=== PATIENT | male | born 1990 | race Caucasian/White ===

== ENCOUNTER 2020-11-22 06:37 | Emergency (ER) | payer OTHER, SELFPAY ==
[2020-11-22] VITALS (14 sets, daily range): BP systolic 94–129; BP diastolic 52–77; PULSE 72–97; RESP 16–24; TEMP 36.6; O2SAT 96–99
--- NOTE | ~2020-11-22 | CT_ITS ---
EXAMINATION: CT BRAIN W/O DATE: 11/22/2020 08:11 INDICATION: Head injury. Headache. Transient alteration of awareness. TECHNIQUE: Computed tomography (CT) of the head was performed without intravenous contrast. The dose- length product was 605.33 mGy-cm. Automated exposure control and iterative reconstruction technique w ere employed. COMPARISON: No prior studies for comparison. FINDINGS: Normal brain parenchymal volume for age. Normal angulo-white differentiation. No acute intrac ranial hemorrhage, infarction, mass or mass effect. There is left posterior parietal scalp hematoma. No ventriculomegaly or midline shift. Midline sagittal images demonstrate a normal corpus callosum, c raniovertebral junction and sella turcica. Basilar cisterns are patent. Paranasal sinuses and mastoids are pneumatized. No depressed skull fractures. IMPRESSION: 1. No acute intracranial abnormality. Reviewed, dictated and finalized at location A.
--- NOTE | 2020-11-22 08:03 | PC.NURSE ---
Patient to radiology.
[2020-11-22] MEDS: ONDANSETRON INJ 4 MG/2 ML VIAL IV PUSH (08:48)
[2020-11-22] MEDS: LACTATED RINGERS 1,000 ML 999 ML IV CONT (09:07)
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
== END 2020-11-22 11:37 | disposition home or self-care (01) ==
PROVIDERS: Emergency Provider General Practice
DX: S00.03XA Contusion of scalp, initial encounter (principal); F17.210 Nicotine dependence, cigarettes, uncomplicated; Y04.0XXA Assault by unarmed brawl or fight, initial encounter
CPT/HCPCS: 70450; 96361; 96374; 96375; 99284; J0131; J2405; J7120

== ENCOUNTER 2023-04-15 14:26 | Emergency (ER) | payer OTHER, SELFPAY ==
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
[2023-04-15 14:35] VITALS: BP 142/91; PULSE 96; RESP 18; TEMP 36.7; O2SAT 100
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
== END 2023-04-15 17:35 | disposition home or self-care (01) ==
PROVIDERS: Emergency Provider Emergency Medicine
DX: S01.21XA Laceration without foreign body of nose, initial encounter (principal); F17.210 Nicotine dependence, cigarettes, uncomplicated; Y04.0XXA Assault by unarmed brawl or fight, initial encounter
CPT/HCPCS: 70486; 72125; 99284

== ENCOUNTER 2024-02-08 13:33 | Emergency (ER) | payer OTHER, SELFPAY ==
--- NOTE | ~2024-02-08 | XR_ITS ---
EXAMINATION: XR knee RT min 4V DATE: 02/08/2024 15:00 INDICATION: Right knee pain. TECHNIQUE: 4 views of right knee were obtained. COMPARISON: None. FINDINGS: Alignment is normal. No fracture. Joint spaces are normal. No knee joint effusion. IMPRESSION: 1. Normal right knee. Reviewed, dictated and finalized at location A. IMPRESSION: 1. Normal right knee.
--- NOTE | ~2024-02-08 | XR_ITS ---
EXAMINATION: XR lumbar spine 2-3V DATE: 02/08/2024 15:00 INDICATION: Low back pain. TECHNIQUE: 3 views of lumbar spine were obtained. COMPARISON: None. FINDINGS: There is 5 degrees dextrocurvature of lumbar spine. There is mild chronic anterior wedging of T12 vertebral body. Intervertebral disc heights are normal. There are endplate osteophytes at mult iple levels. There is multilevel mild facet joint osteoarthritis. IMPRESSION: 1. Mild lumbar spondylosis. Reviewed, dictated and finalized at location A. IMPRESSION: 1. Mild lumbar spondylosis.
--- NOTE | ~2024-02-08 | XR_ITS ---
EXAMINATION: XR shoulder LT min 2V DATE: 02/08/2024 15:00 INDICATION: Left shoulder pain. TECHNIQUE: 4 views of left shoulder were obtained. COMPARISON: None. FINDINGS: Bone alignment is normal. No fracture. Joint spaces are normal. IMPRESSION: 1. Normal left shoulder. Reviewed, dictated and finalized at location A. IMPRESSION: 1. Normal left shoulder.
[2024-02-08 13:39] VITALS: BP 145/88; PULSE 108; RESP 16; TEMP 36.3; O2SAT 97
[2024-02-08 13:50] LABS: Basophils Percent Auto 0.4 % (0.2-1.2); Eosinophils Absolute Auto 0.2 K/mm3 (0-0.3); Eosinophils Percent Auto 1.7 % (0-4.4); Immature Granulocyte Absolute 0.03 K/mm3 (0.00-0.031); Immature Granulocyte Percent A 0.3 % (0-0.5); Lymphocytes Absolute Auto 2.72 K/mm3 (0.9-3.2); Lymphocytes Percent Auto 30.2 % (18.3-44.2); Mean Corpuscular HGB Conc 35.7 g/dl (32-36); Mean Corpuscular Hemoglobin 31.7 pg (26-34); Mean Corpuscular Volume 88.8 fl (80-100); Mean Platelet Volume 9.4 fl (7.4-10.4); Monocytes Absolute Auto 0.5 K/mm3 (0.1-0.6); Monocytes Percent Auto 5.2 % (2.6-8.5); Neutrophils Absolute Auto 5.6 K/mm3 (1.3-6.7); Neutrophils Percent Auto 62.2 % (45.5-73.1); Platelet Count Result 229 k/mm3 (150-375); Red Blood Count 4.73 M/mm3 (4.6-6.20); Red Cell Distribution Width 12.7 % (11.5-14.5)
[2024-02-08 14:06] LABS: Alanine Aminotransferase 28 U/L (6-50); Albumin Level 4.8 g/dL (3.5-5.1); Alkaline Phosphatase 121 U/L (38-126); Anion Gap 16 mmol/L (4-12); Aspartate Amino Transferase 37 U/L (17-59); Bilirubin,Total 0.3 mg/dL (0.2-1.3); Blood Urea Nitrogen 8 mg/dL (9-20); Calcium 8.9 mg/dL (8.4-10.2); Carbon Dioxide 22 mmol/L (22-30); Chloride 108 mmol/L (98-107); Estimated CRCL calculation 74 ml/min; Estimated Glomerular Filt Rate > 60; Glucose 111 mg/dL (65-110); Potassium 3.7 mmol/L (3.4-5.0); Sodium 146 mmol/L (137-145)
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
[2024-02-08 14:26] LABS: Creatine Kinase 180 U/L (55-170)
[2024-02-08] MEDS: LACTATED RINGERS 1,000 ML 999 ML IV CONT (14:35)
[2024-02-08 15:41] LABS: Ethanol 269 mg/dL (<10)
[2024-02-08 15:50] VITALS: BP 134/76; PULSE 82; RESP 20; TEMP 36.6; O2SAT 100
== END 2024-02-08 15:56 ==
PROVIDERS: Emergency Medicine; Emergency Provider Physician Assistant
DX: S40.012A Contusion of left shoulder, initial encounter (principal); E86.0 Dehydration; F17.210 Nicotine dependence, cigarettes, uncomplicated; M47.816 Spondylosis without myelopathy or radiculopathy, lumbar region; Y35.813A Legal intervention involving manhandling, suspect injured, initial encounter
CPT/HCPCS: 36415; 72100; 73030; 73564; 80053; 80307; 82550; 85025; 96360; 99284; J7120

== ENCOUNTER 2024-04-17 05:09 | Emergency (ER) | payer OTHER, SELFPAY ==
--- NOTE | ~2024-04-17 | XR_ITS ---
Portable chest x-ray Comparison: None Clinical History: Cough, shortness of breath Findings: Lungs are clear, without focal consolidation or pleural effusion. Cardiomediastinal silho uette is stable. Bones and soft tissues are unremarkable. Impression: Normal chest. Reviewed, dictated and finalized at [facility]. [employer] Impression: Normal chest.
--- NOTE | 2024-04-17 05:41 | ED.GENADULT ---
HPI - General Adult General Chief complaint: Shortness of Breath/Dyspnea Stated complaint: Cough; everytime I throw up; chills Time Seen by Provider: 04/17/24 05:14 History of Present Illness HPI narrative: Patient is a 34-year-old male who presents to the emergency department this evening complaining of a cough and URI symptoms for the past 2 days. Patient states that he is coughing so hard that it is causing him to vomit. Admits that he has been around sick contacts, some kids and believes that he picked a point of chills at home states that he has not taken any [id number] medications any cough suppressants. Denies any chest pain. No additional symptoms or concerns at this time. Related Data Allergies Allergy/AdvReac Type Severity Reaction Status Date / Time No Known Allergies Allergy Verified 02/08/24 13:36 Review of Systems Review of Systems: All systems are reviewed and are negative unless stated otherwise in the HPI. [facility] Past Medical History Medical History Patient denies medical problems Surgical History Surgical History No pertinent past surgical history Social History Social History Smoking packs per day: 1 Smoking cigarettes per day: 20.0 Smoking status: Current every day smoker Alcohol intake: current Gender identity (if verbalized by the patient): Male Exam Narrative: General: Alert, awake, afebrile, dry cough, in no acute distress. HEENT: PERRL, no rhinorrhea, no post nasal drip, oropharynx clear. Neck: Trachea midline, no JVD, no lymphadenopathy. Cardiovascular: Regular rate and rhythm, no murmurs, rubs or gallops, no peripheral edema. Respiratory: Clear to auscultation bilaterally, no tachypnea, no wheezing, no rhonchi, no rubs, no respiratory distress. Abdomen: Soft, nontender, nondistended, no rebound, no guarding, no peritoneal signs. Musculoskeletal: No joint swelling or deformity, normal muscle tone. Skin: No rashes or petechia, no signs of infection. Psychiatric: Alert and oriented, normal behavior and judgment for situation. Neurological: Alert and oriented to person, place, and time. Follows all commands. No focal deficits, speech is clear and fluent. Course Vital Signs Vital signs: Vital Signs Oxygen Delivery Room Air 04/17/24 05:38 Temperature 98.1 F 04/17/24 06:41 Pulse Rate 85 04/17/24 06:41 Respiratory Rate 18 04/17/24 06:41 Blood Pressure 139/83 04/17/24 06:41 Pulse Oximetry 100 04/17/24 06:41 Oxygen Delivery Room Air 04/17/24 05:38 Medical Decision Making MDM Narrative Medical decision making narrative: The patient was evaluated by myself in the emergency department. History is obtained from patient who is an independent historian and physical exam was performed. External medical records were reviewed at this time. Patient was administered 200 mg of benzonatate. Viral swabs were obtained and noted to be negative for influenza and COVID. Imaging studies obtained included CXR which was independently interpreted by me revealing no acute process, which is pending final radiology interpretation. Differential diagnosis considerations include acute viral syndrome, infectious process such as pneumonia. Comorbidities impacting this visit include none. I have evaluated and discussed social determinants of health with the patient that could potentially impact subsequent diagnosis and treatment plans. On repeat assessment of the patient, reevaluation revealed that the patient is doing well and is in no acute distress. Patient symptoms have remained stable since he arrived to our emergency department. Repeat vital signs were all reviewed and noted to be stable. Differential diagnosis and treatment plan were discussed with the patient at bedside. Patient agrees with discussion and after shared medical decision making agrees with discharge. All questions were answered to the patient's satisfaction. Patient will follow up with his PCP in 3-5 days. A script for Tesbevon Perles was sent to patient's pharmacy to use as prescribed. Patient was provided with strict return precautions and instructed to return to the emergency department if any new or worsening symptoms develop. The patient was discharged in stable condition. Vital Signs Vital Signs: Vital Signs Oxygen Delivery Room Air 04/17/24 05:38 Temperature 98.1 F 04/17/24 06:41 Pulse Rate 85 04/17/24 06:41 Respiratory Rate 18 04/17/24 06:41 Blood Pressure 139/83 04/17/24 06:41 Pulse Oximetry 100 04/17/24 06:41 Oxygen Delivery Room Air 04/17/24 05:38 Lab Data Labs: Lab Results 04/17/24 Range/Units 05:21 Influenza A (RT-PCR) Negative (Negative) Influenza B (RT-PCR) Negative (Negative) SARS-CoV-2 RNA (RT-PCR) Negative (Negative) Discharge Plan Discharge Clinical Impression: Acute viral syndrome Patient Disposition: Home, Self-Care Condition: Stable Instructions: Antibiotic Form, Upper Respiratory Infection (ED) Additional Instructions: Please follow-up your family doctor within the next 3 to 5 days. Return to the emergency department if any new or worsening symptoms develop. Use the prescribed Tessalon Perles as needed for cough. You also recommended to take [id number] cough suppressants as this will help with your symptoms. Prescriptions: New benzonatate 200 mg capsule 200 mg PO TID PRN (Reason: cough) Qty: 14 0RF No Action ondansetron HCl [Zofran] 4 mg tablet 4 mg PO Q6H PRN (Reason: nausea and vomiting) Qty: 10 0RF cephalexin 500 mg capsule 500 mg PO Q6H 7 Days Qty: 28 0RF Follow-up/Referrals: Cyrus Wallace DO [Physician] - 3 Days UNKNOWN,DOCTOR [Primary Care Provider] - Time of Disposition: 05:40
[2024-04-17] MEDS: BENZONATATE 100 MG CAPSULE 200 MG PO (05:50)
[2024-04-17 05:59] VITALS: O2SAT 95
[2024-04-17 06:02] LABS: Influenza A QL RT-PCR Negative (Negative); Influenza B QL RT-PCR Negative (Negative); SARS-CoV-2 RNA PCR Negative (Negative)
[2024-04-17 06:41] VITALS: BP 139/83; PULSE 85; RESP 18; TEMP 36.7; O2SAT 100
== END 2024-04-17 06:48 | disposition home or self-care (01) ==
LOC: ANHED 06:14
PROVIDERS: Emergency Provider Emergency Medicine
DX: B34.9 Viral infection, unspecified (principal); Z20.822 Contact with and (suspected) exposure to COVID-19
CPT/HCPCS: 71045; 87636; 99283; A9270

== ENCOUNTER 2024-07-24 22:09 | Emergency (ER) | payer OTHER, SELFPAY ==
[2024-07-24 22:10] VITALS: BP 132/90; PULSE 62; RESP 18; TEMP 36.8; O2SAT 99
--- OUTSIDE RECORDS SUMMARY | 2024-07-24 22:12 | XMS_ITS | Patient Health Summary ---
Author Organization [facility] Address [address] [place] [address] Care Team Providers Care Global Account Executive Name Role Phone Kayleigh Smith MD Unavailable Note from [facility],non-owned Affiliates and Associated Physician Practices is amultiple site organization consisting of ambulatory clinics and hospital sitesin [place], [place], [place] and [place]. This disclosure is being madepursuant to the Care Everywhere program and may not contain all information available regarding this patient. Last updated 18.[facility] [employer] Allergies No known active allergies Medications * Be aware that medications may not be up to date on this document. Alwaysverify current medications with the patient. * loratadine (CLARITIN) 10 MG tablet Take 10 mg by mouth daily. Immunizations * DTaP VACCINE IM (6wk-6yrs)(Given 11/08/1996, 08/01/1992, 02/01/1992, 1991, 1991) * HEP A PEDS 2 DOSE(Given 07/28/2008, 09/05/2005) * HEP B VACCINE, PED/ADOL(Given 02/11/2004, 12/14/2001, 11/12/2001) * HIB BOOSTER(Given 08/01/1992, 02/01/1992, 1991, 1991) * MMR(Given 11/08/1996, 08/01/1992) * POLIO IPV(Given 11/08/1996, 08/01/1992, 1991, 1991) * PPD(Given 09/05/2005, 11/12/2001) * TDAP (7yrs+)(Given 09/05/2005) Social History Tobacco Use Types Packs/Day Years Used Date Smoking Tobacco: Never Assessed Sex and Gender Information Value Date Recorded Sex Assigned at Not on file Gender Identity Not on file Sexual Orientation Not on file Last Filed Vital Signs Vital Sign Reading Time Taken Comments Blood Pressure 129/73 07/24/2009 2:20 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
--- OUTSIDE RECORDS SUMMARY | 2024-07-24 22:12 | XMS_ITS | Referral Summary ---
Author Organization [facility] Address [address] [place] [address] Care Team Providers Care Media Executive Name Role Phone Kayleigh Smith MD Unavailable Source Comments [facility] [employer],non-owned Affiliates and Associated Physician Practices is amultiple site organization consisting of ambulatory clinics and hospital sitesin [place], [place], [place]. This disclosure is being madepursuant to the Care Everywhere program and may not contain all information available regarding this patient. Last updated 18.[employer] [facility] Allergies No known active allergies Medications * Be aware that medications may not be up to date on this document. Alwaysverify current medications with the patient. Medication Sig Dispensed Refills Start Date End Date Status loratadine (CLARITIN) 10 MG tablet Take 10 mg by mouth daily. Active Immunizations Name Administration Dates Next Due DTaP VACCINE IM (6wk-6yrs) 11/08/1996,,02/01/1992,1991,07/02 HEP A PEDS 2 DOSE 07/28/2008,09/05/2005 HEP B VACCINE, PED/ADOL 02/11/2004,12/14/2001, HIB BOOSTER 08/01/1992,02/01/1992,1991 ,1991 MMR 11/08/1996,08/01/1992 POLIO IPV 11/08/1996,08/01/1992,1991 ,1991 PPD 09/05/2005,11/12/2001 TDAP (7yrs+) 09/05/2005 Social History Tobacco Use Types Packs/Day Years Used Date Smoking Tobacco: Never Assessed Sex and Gender Information Value Date Recorded Sex Assigned at Not on file Gender Identity Not on file Sexual Orientation Not on file Last Filed Vital Signs Vital Sign Reading Time Taken Comments Blood Pressure 129/73 07/24/2009 2:20 PM BOTTLE HOUSE PUMPER Pulse 100 07/24/2009 2:20 PM BOTTLE HOUSE PUMPER Temperature 36.2 C (97.2 F) 05/26/2010 9:51 AM BOTTLE HOUSE PUMPER Respiratory Rate - - Oxygen Saturation - - Inhaled Oxygen Concentration - - Weight 70.1 kg (154 lb 9.6 oz) 05/26/2010 9:51 A M BOTTLE HOUSE PUMPER Height 171.5 cm (5' 7.5 ) 07/24/2009 2:20 PM BOTTLE HOUSE PUMPER Body Mass Index 23.86 07/24/2009 2:20 PM BOTTLE HOUSE PUMPER Plan of Treatment Not on file Care Teams Media Executive Relationship Specialty Start Date End Date Kayleigh Smith MD PCP - Pediatrics 04/10/09
--- OUTSIDE RECORDS SUMMARY | 2024-07-24 22:12 | XMS_ITS | Patient Health Record ---
Author Organization [facility] Address [address] [place] [address] Care Team Providers Care Communication Technician Name Role Phone Uzma Houston Primary Care Provider Allergies No Known Allergies Reason For Referral No Information Medications Medication SIG (Take, Route, Frequency, Duration) Notes Start Date End Date Status Vivitrol 380 MG as directed Intramus cular 1 every month for 30 days Active traZODone HCl 50 MG 1 tablet at bedtime as needed Orally Once a day for 30 day(s) Active PROzac 20 MG 1 capsule Orally Onc e a day for 30 day(s) Active BuSpar 15 MG 1 tablet Orally Twic e a day for 30 days Active Naltrexone HCl 50 MG 1 tablet Orally Onc e a day for 30 days Active Remeron 15 MG 1 tablet at bedtime Orally Once a day Not-Taking Social History Sex Assigned At : Social History Observation Description Sex Assigned At Male Problems Problem Type SNOMED Code ICD Code Onset Dates Problem Status W/U Status Risk Notes Problem Generalized anxiety disorder (47862376) Generalized anxiety disorder (F41.1) Active confirmed Problem Major depressive disorder (374759895) Major depressive disorder (F32.9) Active confirmed Problem Disorder caused by alcohol (disorder) (310538183) Alcohol use disorder (F10.99) Active confirmed Plan Of Treatment No Information Insurance Providers Payer Name Payer Address Payer Phone Subscriber Number Group Number Insured Name Patient Relationship to Insured Coverage Start Date Coverage End Date [facility] Claims Department [address] [place] [address] [phone] [id number] Dominguez Villasenor Self - patient is the insured [address] [facility] Attn Claims Department [address] [place] [address] [id number] Dominguez Villasenor Self - patient is the insured 2 Medications Administered Medication Instructions Date of Administration Dosage Notes Vivitrol 09/21/2021 380 mg Pt neptali well. Medical (General) History Medical History History ICD Code ORIF right tibia Surgical History Surgery Date(Month/Year)
--- OUTSIDE RECORDS SUMMARY | 2024-07-24 22:12 | XMS_ITS | Clinical Summary ---
Author Organization [facility] Address [address] [place] [address] Care Team Providers Care Silk Presser Name Role Phone Kayleigh Smith MD Unavailable Source Comments [employer],non-owned Affiliates and Associated Physician Practices is amultiple site organization consisting of ambulatory clinics and hospital sitesin [place], [place], [place] and [place]. This disclosure is being madepursuant to the Care Everywhere program and may not contain all information available regarding this patient. Last updated 18.[employer] Allergies No known active allergies Medications * [...] Comments Blood Pressure 129/73 07/24/2009 2:20 PM BUTT TRIMMER Pulse 100 07/24/2009 2:20 PM BUTT TRIMMER Temperature 36.2 C (97.2 F) 05/26/2010 9:51 AM BUTT TRIMMER Respiratory Rate - - Oxygen Saturation - - Inhaled Oxygen Concentration - - Weight 70.1 kg (154 lb 9.6 oz) 05/26/2010 9:51 A M BUTT TRIMMER Height 171.5 cm (5' 7.5 ) 07/24/2009 2:20 PM BUTT TRIMMER Body Mass Index 23.86 07/24/2009 2:20 PM BUTT TRIMMER Plan of Treatment Health Maintenance Due Date Last Done Comments HIV SCREENING 2006 HEPATITIS C SCREENING 04/06/2009 DTAP/TDAP/TD VACCINES (7 - Td or Tdap) 09/06/2015 09/05/2005, 11/08/1996, 08/01/1992, Additional history exists COVID-19 VACCINE ( season) 2024 INFLUENZA VACCINE (#1) 2024 DEPRESSION SCREENING 05/29/2024 ZOSTER VACCINE (1 of 2) 2041 HIB VACCINE Completed 08/01/1992, 09/1991, 1991, Additional history exists HEPATITIS B VACCINE Completed 02/11/2004, 12/14/2001, 11/12/2001 HPV VACCINE Aged Out No longer eligi ble based on patient's age to complete this topic MENINGOCOCCAL (Group B) VACCINE Aged Out No longer eligible based on patient's age to complete this topic MENINGOCOCCAL VACCINE Aged Out No dino alva eligible based on patient's age to complete this topic PNEUMOCOCCAL VACCINE Aged Out No long er eligible based on patient's age to complete this topic Care Teams Silk Presser Relationship Specialty Start Date End Date Kayleigh Smith MD PCP - Pediatrics 04/10/09
--- NOTE | 2024-07-25 00:02 | ED_ITS ---
HPI - Fall General Chief Complaint: Fall Stated Complaint: fall, facial trauma Time Seen by Provider: 07/24/24 23:45 History of Present Illness HPI Narrative: 34-year-old male presenting to the emergency department for evaluation after physical injury during a arrest with police custody. Patient fell to the ground and hit his face and nose on concrete and suffered some bleeding out of his right nostril is some minor abrasion to his nose. Did not lose consciousness but patient does admit to drinking throughout the evening. Does appear mildly intoxicated here but able to ambulate, not any acute distress. Denies any vision changes, headache, nauseousness. Endorses the bleeding has since stopped, has previous injuries to his nasal bones with multiple fractures before and a laceration to the tip of his nose that required repair. His tetanus is up-to-date according to him. Denies any other injuries today. Was otherwise in his normal state of health. Police officers have left and he is no longer in custody during arrival here to the ED. Related Data Allergies Allergy/AdvReac Type Severity Reaction Status Date / Time No Known Allergies Allergy Verified 02/08/24 13:36 Review of Systems Review of Systems: As reviewed above in HPI [facility] Past Medical History Medical History Patient denies medical problems Surgical History Surgical History No pertinent past surgical history Social History Social History Smoking packs per day: 1 Smoking cigarettes per day: 20.0 Smoking status: Current every day smoker Alcohol intake: current Gender identity (if verbalized by the patient): Male Exam Narrative: GENERAL: [Well-appearing, well-nourished, and in no acute distress.] HEAD: Normocephalic, left periorbital ecchymosis with some swelling to the supraorbital region to the left face EYES: [PERRLA and EOMI.] ENT: Swelling and tenderness to the nasal bridge, no obvious step-offs or deformity. No bleeding foci in the nares bilaterally. Posterior oropharynx any bleeding or ecchymoses. NECK: Supple. CHEST: [Clear to auscultation. No respiratory distress.] HEART: [Regular rate and rhythm]. No murmur heard. [Normal peripheral pulses.] ABDOMEN: [Soft, nondistended], [nontender], [No rigidity or guarding] EXTREMITIES: Normal range of motion. [No edema.] SKIN: Warm, dry, no rash. NEURO: [No focal deficits]. Alert and oriented [x3.] PSYCH: [Normal mood and affect.] Course Vital Signs Vital signs: Vital Signs Temperature 36.8 C 07/24/24 22:10 Pulse Rate 62 07/24/24 22:10 Respiratory Rate 18 07/24/24 22:10 Blood Pressure 132/90 07/24/24 22:10 Pulse Oximetry 99 07/24/24 22:10 Oxygen Delivery Room Air 07/24/24 22:10 Temperature 36.8 C 07/24/24 22:10 Pulse Rate 62 07/24/24 22:10 Respiratory Rate 18 07/24/24 22:10 Blood Pressure 132/90 07/24/24 22:10 Pulse Oximetry 99 07/24/24 22:10 Oxygen Delivery Room Air 07/24/24 22:10 MDM - Fall MDM Narrative Medical decision making narrative: 34-year-old male presenting to the ER for evaluation of facial trauma after being arrested by police. He has some swelling to the supraorbital region of his left face as well as over his nasal bridge without any obvious deformity. H ad some epistaxis for EMS that has since resolved. No foci bleeding in his nose at this time. Normal vital signs, he is mildly intoxicated does admit to drinking throughout the evening but is able ambulate without any ataxia. Able conversant full sentences. He has an unremarkable neurological assessment. Will obtain CT images of his head and maxillary facial structures and provided him analgesia with morphine intramuscular injection. Suspicion presently is for nondisplaced nasal bone fractures, less likely skull fracture frontal bone fracture, low suspicion for intraparenchymal or intracranial pathology although he does endorse alcohol use he is higher risk. He will be observed here in the emergency department till clinically sober and if he has negative images can be safely discharged home with ENT follow-up. He reports his tetanus was updated recently. Patient CT scans were independently reviewed and also interpreted by Radiology. He has an acute nasal bone fracture but no displacement. Remaining facial bones are intact. No brain hemorrhage, hydrocephalus, mass effect or herniation in other overall unremarkable CT of the head. Patient is safe and stable for discharge home at this time with ear nose and throat follow-up as well as pain control medications upon discharge. Patient is clinically sober and stable for discharge at this time. Medical Records Attestation: I reviewed the patient's medical records. Imaging Data Attestation: I personally reviewed and interpreted this imaging study as follows: My impression: Nasal bone fracture, negative CT of the head and brain Discharge Plan Discharge Clinical Impression: Closed fracture nasal bone, CHI (closed head injury), Alcohol intoxication Patient Disposition: Home, Self-Care Condition: Stable Instructions: Antibiotic Form, Nasal Fracture (ED), Concussion (ED), Head Injury (ED) Additional Instructions: Your CT scan shows an acute nondisplaced nasal bone fracture which does not need any kind of surgery. No injuries to the brain but he might have a concussion based on her description of symptoms. Follow-up with your regular doctor and we have provided urine pilot plant research technician that you can contact N/C. We have sent home with some pain medications to get she through the acute pain. Return with any new or worsening concerns. Patient Language: Kyrgyz Prescriptions: New ibuprofen 800 mg tablet 800 mg PO TID PRN (Reason: pain) Qty: 20 0RF ibuprofen 800 mg tablet 800 mg PO TID PRN (Reason: pain) Qty: 30 0RF acetaminophen [Tylenol Extra Strength] 500 mg tablet 1,000 mg PO TID PRN (Reason: pain) Qty: 30 0RF loratadine [Claritin] 10 mg tablet 10 mg PO DAILY Qty: 20 0RF No Action ondansetron HCl [Zofran] 4 mg tablet 4 mg PO Q6H PRN (Reason: nausea and vomiting) Qty: 10 0RF cephalexin 500 mg capsule 500 mg PO Q6H 7 Days Qty: 28 0RF benzonatate 200 mg capsule 200 mg PO TID PRN (Reason: cough) Qty: 14 0RF Follow-up/Referrals: UNKNOWN,DOCTOR [Primary Care Provider] - Time of Disposition: 01:47
--- OUTSIDE RECORDS SUMMARY | 2024-07-25 00:04 | XMS_ITS | Patient Health Record ---
Author Organization [facility] Address [address] [place] [address] Care Team Providers Care Chemists Name Role Phone Uzma Houston Primary Care [...] Status Risk Notes Problem Generalized anxiety disorder (55263122) Generalized anxiety disorder (F41.1) Active confirmed Problem Major depressive disorder (104274897) Major depressive disorder (F32.9) Active confirmed Problem Disorder caused by alcohol (disorder) (357130175) Alcohol use disorder (F10.99) Active confirmed Plan Of Treatment No Information Insurance Providers Payer Name Payer Address Payer Phone Subscriber Number Group Number Insured Name Patient Relationship to Insured Coverage Start Date Coverage End Date [facility] Claims Department [address] [facility] [address] [place] [address] [phone] [id number] Dominguez Villasenor Self - patient is the insured 2 [facility] Attn Claims Department [address] [place] [address] [id number] Dominguez Villasenor Self - patient is the insured 2 Medications Administered Medication Instructions Date of Administration Dosage Notes Vivitrol 09/21/2021 380 mg Pt neptali well. Medical (General) History Medical History History ICD Code ORIF right tibia Surgical History Surgery Date(Month/Year)
--- OUTSIDE RECORDS SUMMARY | 2024-07-25 00:04 | XMS_ITS | Clinical Summary ---
Author Organization [facility] Address [address] [place] [address] Care Team Providers Care Cow Tender Name Role Phone Kayleigh Smith MD Unavailable Source Comments [employer],non-owned Affiliates and Associated Physician Practices is amultiple site organization consisting of ambulatory clinics and hospital sitesin [place], [place], [place] and [place]. This disclosure is being madepursuant to the Care Everywhere program and may not contain all information available regarding this patient. Last updated 18.[employer] Allergies No known active allergies Medications * [...] Comments Blood Pressure 129/73 07/24/2009 2:20 PM MUSIC EXECUTIVE Pulse 100 07/24/2009 2:20 PM MUSIC EXECUTIVE Temperature 36.2 C (97.2 F) 05/26/2010 9:51 AM MUSIC EXECUTIVE Respiratory Rate - - Oxygen Saturation - - Inhaled Oxygen Concentration - - Weight 70.1 kg (154 lb 9.6 oz) 05/26/2010 9:51 A M MUSIC EXECUTIVE Height 171.5 cm (5' 7.5 ) 07/24/2009 2:20 PM MUSIC EXECUTIVE Body Mass Index 23.86 07/24/2009 2:20 PM MUSIC EXECUTIVE Plan of Treatment Health Maintenance Due Date [...] age to complete this topic Care Teams Cow Tender Relationship Specialty Start Date End Date Kayleigh Smith MD PCP - Pediatrics 04/10/09
--- OUTSIDE RECORDS SUMMARY | 2024-07-25 00:04 | XMS_ITS | Referral Summary ---
Author Organization [facility] Address [address] [place] [address] Care Team Providers Care Delivery And Mail Sorter Name Role Phone Kayleigh Smith MD Unavailable Source Comments [facility] [employer],non-owned Affiliates and Associated Physician Practices is amultiple site organization consisting of ambulatory clinics and hospital sitesin [place], [place], [place] and [place]. This disclosure is being madepursuant to the Care Everywhere program and may not contain all information available regarding this patient. Last updated 18.[employer] Allergies No known active allergies Medications * [...] Comments Blood Pressure 129/73 07/24/2009 2:20 PM EXPERIMENTAL MACHINING LAB MANAGER Pulse 100 07/24/2009 2:20 PM EXPERIMENTAL MACHINING LAB MANAGER Temperature 36.2 C (97.2 F) 05/26/2010 9:51 AM EXPERIMENTAL MACHINING LAB MANAGER Respiratory Rate - - Oxygen Saturation - - Inhaled Oxygen Concentration - - Weight 70.1 kg (154 lb 9.6 oz) 05/26/2010 9:51 A M EXPERIMENTAL MACHINING LAB MANAGER Height 171.5 cm (5' 7.5 ) 07/24/2009 2:20 PM EXPERIMENTAL MACHINING LAB MANAGER Body Mass Index 23.86 07/24/2009 2:20 PM EXPERIMENTAL MACHINING LAB MANAGER Plan of Treatment Not on file Care Teams Delivery And Mail Sorter Relationship Specialty Start Date End Date Kayleigh Smith MD PCP - Pediatrics 04/10/09
--- OUTSIDE RECORDS SUMMARY | 2024-07-25 00:04 | XMS_ITS | Patient Health Summary ---
Author Organization [facility] Address [address] [place] [address] Care Team Providers Care Carbonating Stone Cleaner Name Role Phone Kayleigh Smith MD Unavailable Note from [facility],non-owned Affiliates and Associated Physician Practices is amultiple site organization consisting of ambulatory clinics and hospital sitesin [place], [place], [place] and [place]. This disclosure is being madepursuant to the Care Everywhere program and may not contain all information available regarding this patient. Last updated 18.[facility] [place] Allergies No known active allergies Medications * [...] Comments Blood Pressure 129/73 07/24/2009 2:20 PM BEAM MACHINE OPERATOR Pulse 100 07/24/2009 2:20 PM BEAM MACHINE OPERATOR Temperature 36.2 C (97.2 F) 05/26/2010 9:51 AM BEAM MACHINE OPERATOR Respiratory Rate - - Oxygen Saturation - - Inhaled Oxygen Concentration - - Weight 70.1 kg (154 lb 9.6 oz) 05/26/2010 9:51 A M BEAM MACHINE OPERATOR Height 171.5 cm (5' 7.5 ) 07/24/2009 2:20 PM BEAM MACHINE OPERATOR Body Mass Index 23.86 07/24/2009 2:20 PM BEAM MACHINE OPERATOR Care Teams Carbonating Stone Cleaner Relationship Specialty Start Date End Date Kayleigh Smith MD PCP - Pediatrics 04/10/09
[2024-07-25] MEDS: MORPHINE SULFATE INJ (*CRX) 10 MG/ML AMP 8 MG IM (00:12)
[2024-07-25 01:56] VITALS: BP 121/83; PULSE 78; RESP 18; O2SAT 100
== END 2024-07-25 01:56 | disposition home or self-care (01) ==
PROVIDERS: Emergency Provider Student in an Organized Health Care Education/Training Program
DX: S02.2XXA Fracture of nasal bones, initial encounter for closed fracture (principal); W18.30XA Fall on same level, unspecified, initial encounter; F10.129 Alcohol abuse with intoxication, unspecified; F17.210 Nicotine dependence, cigarettes, uncomplicated
CPT/HCPCS: 70450; 70486; 96372; 99284; J2270